=== PATIENT | male | born 1950 | race Asian ===

== ENCOUNTER 2018-06-04 08:40 | Outpatient (CLI) | payer OTHER ==
[2018-06-04 09:30] LABS: PLATELET COUNT 258 K/uL (142-355)
== END 2018-06-04 19:42 | disposition home or self-care (01) ==
LOC: LABW 08:40
PROVIDERS: Internal Medicine
DX: E11.9 Type 2 diabetes mellitus without complications (principal); Z12.5 Encounter for screening for malignant neoplasm of prostate; E79.0 Hyperuricemia without signs of inflammatory arthritis and tophaceous disease; R97.20 Elevated prostate specific antigen [PSA]
CPT/HCPCS: 36415; 80053; 80061; 81000; 82043; 82570; 83036; 84153; 84439; 84443; 84550; 85027

== ENCOUNTER 2018-06-24 10:49 | Outpatient (CLI) | payer OTHER ==
[2018-06-24 11:23] LABS: PLATELET COUNT 274 K/uL (142-355)
[2018-06-24 11:31] LABS: POTASSIUM 4.6 mmol/L (3.6-5.2)
== END 2018-06-24 20:18 | disposition home or self-care (01) ==
LOC: LABW 10:49
PROVIDERS: Internal Medicine
DX: N18.3 Chronic kidney disease, stage 3 (moderate) (principal); E11.9 Type 2 diabetes mellitus without complications
CPT/HCPCS: 36415; 80053; 81000; 82043; 82306; 82330; 82570; 83036; 83735; 83970; 84100; 84155; 84550; 85027

== ENCOUNTER 2018-08-12 11:29 | Outpatient (CLI) | payer OTHER ==
[2018-08-12 12:01] LABS: PLATELET COUNT 267 K/uL (142-355)
[2018-08-12 12:13] LABS: POTASSIUM 4.8 mmol/L (3.6-5.2)
== END 2018-08-12 23:03 | disposition home or self-care (01) ==
LOC: LABW 11:29
PROVIDERS: Internal Medicine
DX: N18.4 Chronic kidney disease, stage 4 (severe) (principal)
CPT/HCPCS: 36415; 80053; 81000; 82330; 82570; 83735; 84100; 84155; 85027

== ENCOUNTER 2019-01-22 11:50 | Outpatient (CLI) | payer OTHER | END 2019-01-22 19:14 | disposition home or self-care (01) | LOC: LABW 11:50 | DX: R97.20 Elevated prostate specific antigen [PSA] (principal) | CPT/HCPCS: 36415; 84153 ==

== ENCOUNTER 2019-03-16 16:00 | Outpatient (CLI) | payer OTHER ==
[2019-03-16 16:25] LABS: PLATELET COUNT 275 K/uL (142-355)
[2019-03-16 16:34] LABS: POTASSIUM 4.1 mmol/L (3.6-5.2)
== END 2019-03-16 19:42 | disposition home or self-care (01) ==
LOC: LABW 16:00
PROVIDERS: Internal Medicine
DX: E11.22 Type 2 diabetes mellitus with diabetic chronic kidney disease (principal); N18.4 Chronic kidney disease, stage 4 (severe)
CPT/HCPCS: 36415; 80053; 81000; 82306; 82330; 82570; 83036; 83735; 83970; 84100; 84155; 85027

== ENCOUNTER 2019-04-13 11:38 | Outpatient (CLI) | payer OTHER ==
[2019-04-13 12:03] LABS: PLATELET COUNT 253 K/uL (142-355)
== END 2019-04-13 19:10 | disposition home or self-care (01) ==
LOC: LABW 11:38
PROVIDERS: Nurse Practitioner
DX: N18.4 Chronic kidney disease, stage 4 (severe) (principal); D63.1 Anemia in chronic kidney disease; E53.8 Deficiency of other specified B group vitamins
CPT/HCPCS: 36415; 80053; 81000; 82330; 82570; 82607; 82728; 82746; 83540; 83550; 84155; 85027

== ENCOUNTER 2019-05-25 09:03 | Outpatient (CLI) | payer OTHER ==
[2019-05-25 09:24] LABS: PLATELET COUNT 246 K/uL (142-355)
[2019-05-25 09:41] LABS: POTASSIUM 4.2 mmol/L (3.6-5.2)
== END 2019-05-25 20:48 | disposition home or self-care (01) ==
LOC: LABW 09:03
PROVIDERS: Internal Medicine
DX: N18.4 Chronic kidney disease, stage 4 (severe) (principal); D63.1 Anemia in chronic kidney disease; E53.8 Deficiency of other specified B group vitamins
CPT/HCPCS: 36415; 80053; 81000; 82330; 82570; 82607; 82728; 82746; 83540; 83550; 84155; 85027

== ENCOUNTER 2019-07-16 08:17 | Outpatient (CLI) | payer OTHER ==
[2019-07-16 09:42] LABS: POTASSIUM 4.9 mmol/L (3.6-5.2)
[2019-07-16 10:24] LABS: PLATELET COUNT 224 K/uL (142-355)
== END 2019-07-16 19:00 | disposition home or self-care (01) ==
LOC: LABW 08:17
PROVIDERS: Internal Medicine
DX: E11.9 Type 2 diabetes mellitus without complications (principal); E55.9 Vitamin D deficiency, unspecified; E79.0 Hyperuricemia without signs of inflammatory arthritis and tophaceous disease
CPT/HCPCS: 36415; 80053; 80061; 81000; 82043; 82306; 82570; 83036; 84439; 84443; 84550; 85027

== ENCOUNTER 2019-10-16 14:32 | Outpatient (CLI) | payer OTHER ==
[2019-10-16 15:04] LABS: PLATELET COUNT 250 K/uL (142-355)
[2019-10-16 15:45] LABS: POTASSIUM 4.6 mmol/L (3.6-5.2)
== END 2019-10-16 23:04 | disposition home or self-care (01) ==
LOC: LABW 14:32
PROVIDERS: Internal Medicine
DX: N18.4 Chronic kidney disease, stage 4 (severe) (principal); D63.1 Anemia in chronic kidney disease
CPT/HCPCS: 36415; 80053; 81000; 82330; 82570; 82607; 82728; 83550; 84155; 85027

== ENCOUNTER 2020-01-12 09:54 | Outpatient (CLI) | payer OTHER ==
[2020-01-12 10:28] LABS: PLATELET COUNT 256 K/uL (142-355)
[2020-01-12 10:44] LABS: POTASSIUM 4.5 mmol/L (3.6-5.2)
== END 2020-01-12 19:03 | disposition home or self-care (01) ==
LOC: LABW 09:54
PROVIDERS: Nurse Practitioner
DX: E11.22 Type 2 diabetes mellitus with diabetic chronic kidney disease (principal); N18.4 Chronic kidney disease, stage 4 (severe); E79.0 Hyperuricemia without signs of inflammatory arthritis and tophaceous disease; D63.1 Anemia in chronic kidney disease; E53.8 Deficiency of other specified B group vitamins
CPT/HCPCS: 36415; 80053; 81000; 82306; 82330; 82607; 82728; 82746; 83036; 83540; 83550; 83735; 83970; 84100; 84550; 85027

== ENCOUNTER 2020-04-11 09:54 | Outpatient (CLI) | payer OTHER ==
[2020-04-11 10:24] LABS: PLATELET COUNT 266 K/uL (142-355)
[2020-04-11 10:38] LABS: POTASSIUM 4.2 mmol/L (3.6-5.2)
== END 2020-04-11 22:41 | disposition home or self-care (01) ==
LOC: LABW 09:54
PROVIDERS: ATTEND Internal Medicine
DX: E11.9 Type 2 diabetes mellitus without complications (principal)
CPT/HCPCS: 36415; 80053; 80061; 81000; 82043; 83036; 84439; 84443; 85027

== ENCOUNTER 2021-04-14 08:45 | Outpatient (CLI) | payer OTHER ==
[2021-04-14 09:23] LABS: PLATELET COUNT 262 K/uL (142-355)
[2021-04-14 09:51] LABS: POTASSIUM 4.4 mmol/L (3.6-5.2)
== END 2021-04-14 19:54 | disposition home or self-care (01) ==
LOC: LABW 08:45
PROVIDERS: ATTEND Internal Medicine
DX: N18.30 Chronic kidney disease, stage 3 unspecified (principal); R79.89 Other specified abnormal findings of blood chemistry
CPT/HCPCS: 36415; 80053; 81002; 82043; 82306; 82330; 82570; 82607; 82728; 83036; 83550; 83735; 83970; 84100; 84155; 84550; 85027

== ENCOUNTER 2021-07-05 08:10 | Outpatient (CLI) | payer OTHER ==
[2021-07-05 08:47] LABS: PLATELET COUNT 216 K/uL (142-355)
[2021-07-05 09:31] LABS: POTASSIUM 4.3 mmol/L (3.6-5.2)
== END 2021-07-05 19:00 | disposition home or self-care (01) ==
LOC: LABW 08:10
PROVIDERS: ATTEND Internal Medicine
DX: E11.9 Type 2 diabetes mellitus without complications (principal); E79.0 Hyperuricemia without signs of inflammatory arthritis and tophaceous disease; E55.9 Vitamin D deficiency, unspecified
CPT/HCPCS: 36415; 80053; 80061; 82043; 82306; 83036; 84439; 84443; 84550; 85027

== ENCOUNTER 2021-10-05 09:47 | Outpatient (CLI) | payer OTHER ==
[2021-10-05 10:31] LABS: PLATELET COUNT 209 K/uL (142-355)
[2021-10-05 11:29] LABS: POTASSIUM 3.9 mmol/L (3.6-5.2)
== END 2021-10-05 20:55 | disposition home or self-care (01) ==
LOC: LABW 09:47
PROVIDERS: ATTEND Nurse Practitioner
DX: N18.4 Chronic kidney disease, stage 4 (severe) (principal); E11.9 Type 2 diabetes mellitus without complications; D64.89 Other specified anemias
CPT/HCPCS: 36415; 80053; 81002; 82306; 82330; 82570; 82607; 82728; 82746; 83036; 83540; 83550; 83735; 83970; 84100; 84156; 84550; 85027

== ENCOUNTER 2021-10-19 08:49 | Outpatient (CLI) | payer OTHER ==
[2021-10-19 09:13] LABS: PLATELET COUNT 219 K/uL (142-355)
== END 2021-10-19 21:19 | disposition home or self-care (01) ==
LOC: LABW 08:49
PROVIDERS: ATTEND Internal Medicine
DX: E11.9 Type 2 diabetes mellitus without complications (principal)
CPT/HCPCS: 36415; 80053; 80061; 81002; 82043; 83036; 84439; 84443; 85027

== ENCOUNTER 2022-02-15 14:40 | Outpatient (CLI) | payer OTHER ==
[2022-02-15 15:10] LABS: PLATELET COUNT 225 K/uL (142-355)
[2022-02-15 15:29] LABS: POTASSIUM 4.7 mmol/L (3.6-5.2)
== END 2022-02-15 19:06 | disposition home or self-care (01) ==
LOC: LABW 14:40
PROVIDERS: ATTEND Internal Medicine
DX: E11.22 Type 2 diabetes mellitus with diabetic chronic kidney disease (principal); N18.4 Chronic kidney disease, stage 4 (severe); E79.0 Hyperuricemia without signs of inflammatory arthritis and tophaceous disease; D63.1 Anemia in chronic kidney disease
CPT/HCPCS: 36415; 80053; 81002; 82043; 82330; 82550; 82570; 82607; 82728; 82746; 83036; 83540; 83550; 83735; 83970; 84100; 84156; 84550; 85027

== ENCOUNTER 2022-07-02 12:33 | Outpatient (CLI) | payer OTHER ==
[2022-07-02 13:20] LABS: PLATELET COUNT 233 K/uL (142-355)
[2022-07-02 13:41] LABS: POTASSIUM 4.4 mmol/L (3.6-5.2)
== END 2022-07-02 20:42 | disposition home or self-care (01) ==
LOC: LAB 12:33
PROVIDERS: ATTEND Internal Medicine
DX: E11.9 Type 2 diabetes mellitus without complications (principal)
CPT/HCPCS: 80053; 80061; 81002; 83036; 84439; 84443; 85027